=== PATIENT | female | born 1990 | race Two or more races ===

== ENCOUNTER 2016-11-10 00:46 | Emergency (ER) | payer MEDICAID, OTHER, SELFPAY ==
[~2016-11-10] VITALS: Ht 170.2 cm; Wt 61.2 kg
[2016-11-10] MEDS ORDERED: ONDANSETRON 2MG/ML, 2ML ONE (01:53)
[2016-11-10] MEDS ORDERED: ONDANSETRON 2MG/ML, 2ML IVPush ONE (02:00)
[2016-11-10] MEDS ORDERED: SODIUM CHLORIDE 0.9% 1,000ML IVBOLUS ONE (02:00)
[2016-11-10 05:21] VITALS: BP 104/56
== END 2016-11-10 05:23 | disposition home or self-care (01) ==
LOC: ED 05:04
DX: F10.120 Alcohol abuse with intoxication, uncomplicated (principal)
CPT/HCPCS: 96361; 96374; 99285; J2405; J7030

== ENCOUNTER 2019-05-08 15:16 | Emergency (ER) | payer BC ==
[~2019-05-08] VITALS: Ht 170.2 cm; Wt 68.6 kg
--- NOTE | 2019-05-08 15:58 | NUR ---
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
--- NOTE | 2019-05-08 16:13 | NUR ---
PT WITH C/O CONGESTION, STATES HER LUNGS "FEEL HEAVY AND ITS IN MY BACK TOO" PT DENIES COUGH, FEVER, CP.
[2019-05-08 16:21] VITALS: BP 123/85
[2019-05-08] MEDS ORDERED: MAALOX/HYOSCYAMINE/LIDOCAINE 45 ML BTL PO ONE (16:30)
[2019-05-08 16:44] LABS: BASOPHILS # (AUTO) 0.02 x10^3/uL (0-0.1); BASOPHILS % (AUTO) 0 % (0-1); EOSINOPHILS # (AUTO) 0.18 x10^3/uL (0-0.4); EOSINOPHILS % (AUTO) 4 % (1-7); LYMPHOCYTES # (AUTO) 1.75 x10^3/uL (1-3.4); LYMPHOCYTES % (AUTO) 38 % (22-44); MD NO; MEAN CORPUSCULAR HEMOGLOBIN 28.9 pg (27.0-34.8); MEAN CORPUSCULAR HGB CONC 33.7 g/dL (32.4-35.8); MEAN CORPUSCULAR VOLUME 85.8 fL (80-100); MEAN PLATELET VOLUME 8.1 fL (7.4-10.4); MONOCYTES # (AUTO) 0.29 x10^3/uL (0.2-0.8); MONOCYTES % (AUTO) 6 % (2-9); NEUTROPHILS # (AUTO) 2.39 x10^3/uL (1.8-6.8); NEUTROPHILS % (AUTO) 52 % (42-75); PLATELET COUNT 216 x10^3/uL (130-400); RED BLOOD COUNT 4.31 x10^6/uL (3.82-5.3)
[2019-05-08] MEDS ORDERED: MAALOX/HYOSCYAMINE/LIDOCAINE 45 ML BTL ONE (16:46)
[2019-05-08 16:49] LABS: ALBUMIN 4.1 g/dL (3.4-5.0); ANION GAP 6 mmol/L (5-15); CHLORIDE 109 mmol/L (98-107); CREATININE 0.69 mg/dL (0.55-1.02)
[2019-05-08 16:52] LABS: TROPONIN I < 0.015 ng/mL (0.000-0.045)
== END 2019-05-08 18:47 | disposition home or self-care (01) ==
LOC: ED 16:09
DX: R07.2 Precordial pain (principal); R09.1 Pleurisy; R06.02 Shortness of breath
CPT/HCPCS: 36415; 71045; 80048; 82040; 84484; 85025; 93005; 99285